=== PATIENT | male | born 1965 | race Caucasian/White ===

== ENCOUNTER 2016-12-13 13:00 | Outpatient (RCR) | payer MEDICAID ==
[~2016-12-13 13:00] MED LIST: ABILIFY 15MG TA15 MG PO; ASPIRIN 81M81 MG/TA2 PO; BUSPAR10 MG PO; CYPROHEPTADINE4 MG PO; FLEXERIL 1010 MG/TAB PO; FLOMAX 0.40.4 MG/CAP PO; LEXAPRO20 MG PO; MELATONIN3 M1 PO; NEXIUM 40MG40 MG PO; NORCO 325 MG-101 TAB PO; NORCO 325 MG-51 TAB PO; NORVASC 5MG5 MG/TAB PO; PREDNISONE20 MG PO; PREVACID SOLUTA30 M2 PO; PROZAC40 MG PO; TOPROL XL100 MG PO; XANAX 0.5MG0.5 MG PO; ZESTRIL 10MG10 MG PO; ZOCOR 20MG20 MG PO
== END 2017-02-16 ==
LOC: MKS.ESL.PT
DX: G20 Parkinson's disease (principal); M54.5 Low back pain

== ENCOUNTER → 2020-09-10 | Outpatient (CLI) | payer SELFPAY | LOC: DIA.ED 11:40 | DX: E11.65 Type 2 diabetes mellitus with hyperglycemia (principal); Z79.84 Long term (current) use of oral hypoglycemic drugs; I10 Essential (primary) hypertension; E78.5 Hyperlipidemia, unspecified | CPT/HCPCS: G0108 ==

== ENCOUNTER → 2020-10-29 | Outpatient (CLI) | payer SELFPAY | LOC: DIA.ED 10:13 | DX: E11.9 Type 2 diabetes mellitus without complications (principal); Z79.84 Long term (current) use of oral hypoglycemic drugs; I10 Essential (primary) hypertension; E78.5 Hyperlipidemia, unspecified | CPT/HCPCS: G0108 ==

== ENCOUNTER → 2021-07-20 | Outpatient (CLI) | payer OTHER | LOC: COL.RAD 08:31 | DX: Z02.71 Encounter for disability determination (principal); M51.36 Other intervertebral disc degeneration, lumbar region; M47.816 Spondylosis without myelopathy or radiculopathy, lumbar region ==